=== PATIENT | male | born 1980 | race Caucasian/White ===

== ENCOUNTER → 2024-06-19 | Outpatient (CLI) | payer BC, SELFPAY ==
[2024-06-25 06:23] LABS: Testosterone,Total* 335 ng/dL (250-1100)
== END | disposition home or self-care (01) ==
LOC: COPL 08:48
PROVIDERS: PCP Nurse Practitioner Family; Referring Provider Nurse Practitioner Family; Visit Provider Nurse Practitioner Family
DX: E29.1 Testicular hypofunction (principal)
CPT/HCPCS: 36415; 84403

== ENCOUNTER 2024-11-27 22:33 | Emergency (ER) | payer BC, SELFPAY ==
[2024-11-27 22:40] VITALS: BP 132/84; PULSE 92; RESP 19; TEMP 36.7; O2SAT 93; BMI 32.1
[2024-11-27 23:00] VITALS: RESP 20
[2024-11-27 23:12] VITALS: BP 128/82; PULSE 87; RESP 19; TEMP 36.7; O2SAT 96
--- NOTE | 2024-11-28 00:08 | XR_ITS ---
Examination: AP chest single view TECHNIQUE: Portable sitting AP chest single view Date and time on November 28, 2024 0055 hours INDICATIONS: Chest pain today FINDINGS: Normal heart size. Lungs are clear. Osseous structures are intact IMPRESSION: No active disease
--- NOTE | 2024-11-28 00:21 | PD.EDCHEST ---
ED Chest Pain RME/HPI General Chief Complaint: Chest Pain Stated Complaint: CHEST PAIN Time Seen by Provider: 11/27/24 23:04 Arrival date/time: 11/27/24 22:33 Limitations: no limitations RME / HPI RME / HPI narrative: Dr. Marrero's Main ED Evaluation: 44yo male with a history of HTN BIBA from work presents to the ED for a chief complaint of chest pain. Patient states he started feeling lightheaded and had chest tightness that radiated up to his neck at 2030. He checked his blood pressure and was noted to be 180/130, so he was sent over for evaluation. Patient denies any N/V/D, abdominal pain or any other associated symptoms. EMS administered nitroglycerin sublingual, nitropaste, and 2 aspirin en route. Patient denies any familial history of MD. Denies any tobacco use. NKA. PCP: Lindsay Related Data Home Medications ?Medication ?Instructions ?Recorded ?Confirmed hydrochlorothiazide 25 mg tablet 25 mg PO QDAY 07/31/18 07/31/18 Allergies Allergy/AdvReac Type Severity Reaction Status Date / Time No Known Allergies Allergy Verified 07/31/18 11:42 Review of Systems Review of Systems Systems Reviewed: All systems reviewed, normal except as documented Past Medical History Past Medical History CARDIAC: Positive Hypertension; Negative Congestive Heart Failure RESPIRATORY: Negative Chronic Obstructive Pulmonary Disease (COPD) GENITOURINARY: Negative Renal Disease ENT: Positive Ear Infection ENDOCRINE: Negative Diabetes Mellitus Type 1 or Diabetes Mellitus Type 2 OTHER HISTORY: Negative Autoimmune Disease Family History FAMILY HISTORY: Negative Family Psychiatric Problems, Family Respiratory Disorders, Family Cardiac Disorders, Family Gastrointestinal Problems, Family Genitourinary Problems, Family Endocrine Disorders, Family Reproductive Disorders, Family Musculoskeletal Disorders, Family Cancer, Family Surgery or Family Anesthesia Reaction Social History SMOKING STATUS: Never smoker ED Exam General Limitations: Present no limitations General appearance: Present alert and in no apparent distress Head Head exam: Present atraumatic Eye Eye exam: Present normal appearance, PERRL and EOMI ENT ENT exam: Present normal exam, normal oropharynx and mucous membranes moist Neck Neck exam: Present normal inspection, full ROM and trachea midline Chest Chest inspection: Present normal inspection and symmetric chest wall rise Respiratory Respiratory exam: Present normal lung sounds bilaterally Cardiovascular Cardiovascular exam: Present regular rate, normal rhythm and normal heart sounds Abdominal Exam Abdominal exam: Present soft and normal bowel sounds Extremities Exam Extremities exam: Present normal inspection and full ROM Back Exam Back exam: Present normal inspection and full ROM Neurological Exam Neurological exam: Present alert, oriented X3 and CN II-XII intact Psychiatric Psychiatric exam: Present normal affect and normal mood Skin Skin exam: Present warm, dry, intact and normal color Course Course Course Narrative: CXR is ordered for determining the etiology of chest pain. 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 11/28/24 00:08 Active Continuous Pulse Oximetry ONCE Care 11/28/24 00:08 Active EKG (ED ONLY) *Do not use* NOW Care 11/28/24 00:08 Completed Insert IV STAT Care 11/28/24 00:08 Active EKG (ED Only) Stat Exams 11/28/24 00:08 Ordered XR chest 1V portable Stat Exams 11/28/24 00:08 Taken B-Type Natriuretic Peptide Stat Lab 11/28/24 00:00 Completed CBC Stat Lab 11/28/24 00:00 Completed Comprehensive Metabolic Panel Stat Lab 11/28/24 00:00 Completed Partial Thromboplastin Time Stat Lab 11/28/24 00:00 Completed Prothrombin Time with INR Stat Lab 11/28/24 00:00 Completed Troponin I Stat Lab 11/28/24 00:00 Completed Troponin I Stat Lab 11/28/24 02:07 Completed Sodium Chloride 0.9% 1000 ml [Ns] 1,000 ml Med 11/28/24 00:08 Discontinued IV 999 mls/hr Oxygen Delivery NOW RT 11/28/24 00:08 Active Vital Signs Vital signs: Vital Signs Temperature 98.1 F 11/27/24 22:40 Pulse Rate 92 11/27/24 22:40 Respiratory Rate 19 11/27/24 22:40 Blood Pressure 132/84 H 11/27/24 22:40 Pulse Oximetry (%) 93 L 11/27/24 22:40 Oxygen Delivery Method Room Air 11/27/24 22:40 Chest Pain MDM Narrative MDM Narrative:: Scribe Attestation: 11/28/24 Lesa Lyle am scribing for and in the presence of Dr. Marrero. HEART score is 1, indicating the patient is at a low risk for a cardiac event. 0015: Blood pressure is now 119/73 with a HR of 67. Patient data External records reviewed:: [facility] previous records (Per chart review, patient has no relevant previous ED visits.) Clinical information provided by:: patient Social determinants that could affect healthcare access:: none Patient has the following chronic illnesses:: HTN How is presenting disease/condition affected by chronic disease/condition?: caused by Evaluation data The following diagnostics were reviewed and interpreted by me:: lab results, radiology exam(s) and EKG tracing(s) Lab and/or radiology exams considered but not ordered:: none Interpretation Summary: CBC is normal, PT and INR are normal, PTT is normal, Potassium 3.0, Initial and Repeat Troponins are normal, BNP is normal, according to my interpretation. CXR is negative for any infiltrates, cardiomegaly, or pleural effusions, according to my interpretation. EKG done at 2306, NSR, rate of 83, low voltage, nonspecific ST-T wave change in lead III, [place] interval: 173, QTc: 412, no STEMI, according to my interpretation. Medications / Prescriptions Medications or Prescriptions considered but not ordered:: none Medication administrations:: Medication Administration History Discontinued Medications Sodium Chloride (Ns) 1,000 mls @ 999 mls/hr IV .Q1H1M ONE Stop: 11/28/24 01:08 Last Infusion: 11/28/24 02:42 Dose: Infused Documented By: Admin: 11/28/24 01:41 Dose: 999 mls/hr Documented By: PATTI see above Consultations Consultation(s) initiated? (list below): No Diagnosis Chest Pain Differential Diagnosis: stable angina, unstable angina pectoris and other (atypical chest pain, PE) Most likely diagnosis given after review of the tests above:: atypical chest pain Admission Indicated Admission indicated?: not indicated Admission Request Was there a request for admission?: No Disposition Plan Disposition Plan: Discharge Discharge Attestation Discharge Attestation: The patient and all family members were given an opportunity to ask questions and understood the discharge instructions. Discharge instructions specifically effects, indications for sooner follow up or return to the emergency department, and the expected course of current diagnosis. Patient condition: Stable Discharge Plan Plan Patient Disposition: HOME (Self Care) Patient condition on transfer: Stable Prescriptions/Referrals Prescriptions/Med Rec: No Action hydrochlorothiazide 25 mg Tablet 25 mg PO QDAY Referrals: Kymberly Montoya MD [Primary Care Provider] - In 1 week Problem List Clinical Impression: Atypical chest pain Patient/Caregiver Discharge Instructions Education Materials: Communicating About Pain, ED Chest Pain, Uncertain Cause Additional Instructions: Follow-up with your PCP in the next 2-3 days. Return to the ED for any worsening symptoms or as needed. Print Language: Congolese Stand Alone Forms: [facility] Award Info., Patient Portal Info Letter
[2024-11-28 00:25] LABS: Eosinophils # (Auto) 0.1 Thou/mm3 (0.0-0.5); Eosinophils % (Auto) 1 % (0-10); Immature Granulocytes % (Auto) 0 % (0-0); Immature Granulocytes Auto 0.03 Thou/mm3 (0.00-0.00); Nucleated Red Blood Cell % 0 /100 WBC (0)
[2024-11-28 00:44] LABS: Basophils # (Auto) 0.1 Thou/mm3 (0.0-0.2); Basophils % (Auto) 1 % (0-2.5); Hematocrit 45.5 % (41.0-53.0); Hemoglobin 16.8 g/dL (13.5-16.0); Lymphocytes # (Auto) 3.4 Thou/mm3 (1.0-4.8); Lymphocytes % (Auto) 36 % (10-50); Mean Corpuscular HGB Conc 36.9 g/dl (31.0-37.0); Mean Corpuscular Hemoglobin 31.5 pg (25.0-35.0); Mean Corpuscular Volume 85 fL (80-100); Monocytes # (Auto) 0.8 Thou/mm3 (0.0-0.8); Monocytes % (Auto) 9 % (0-12); Neutrophils % (Auto) 53 % (37-80); Platelet Count 347 Thou/mm3 (140-440); RDW Standard Deviation 36.1 fL (35.1-43.9); Red Blood Count 5.33 Miln/mm3 (4.50-5.90); White Blood Count 9.5 Thou/mm3 (3.8-10.6)
[2024-11-28 00:54] LABS: Partial Thromboplastin Time 28.7 Seconds (22.0-36.0); Prothrombin Time 11.4 Seconds (9.0-12.2)
[2024-11-28 00:56] LABS: B-Type Natriuretic Peptide < 20 pg/mL (0-100)
[2024-11-28 00:57] LABS: Alanine Aminotransferase 51 U/L (10-49); Albumin, Serum 4.6 gm/dL (3.5-5.0); Albumin/Globulin Ratio 1.8 (1.2-2.2); Alkaline Phosphatase 65 U/L (46-116); Anion Gap 13 (7-16); Aspartate Amino Transferase 28 U/L (0-34); BUN/Creatinine Ratio 10 Ratio (12-20); Bilirubin,Total 0.7 mg/dL (0.3-1.2); Blood Urea Nitrogen 11 mg/dL (9-23); Carbon Dioxide 25.7 mMol/L (20.0-31.0); Chloride 101 mMol/L (98-107); Creatinine (Component) 1.1 mg/dL (0.6-1.3); Estimated Creatinine Clearance 117.2 mL/min (>60); Globulin 2.5 gm/dL (2.3-3.5); Glucose 93 mg/dL (74-106); Osmolality,Calculated 278 (275-295); Sodium 140 mMol/L (136-145); Total Protein 7.1 gm/dL (5.7-8.2); Troponin I < 0.002 ng/mL (0.0-0.045); eGFR > 60 See Note
[2024-11-28] MEDS: SODIUM CHLORIDE 0.9% 1000 ML 1,000 ML 999 ML IV (01:41)
[2024-11-28 02:49] LABS: Troponin I < 0.002 ng/mL (0.0-0.045)
[2024-11-28 03:54] VITALS: BP 121/76; PULSE 82; RESP 18; TEMP 36.7; O2SAT 98
== END 2024-11-28 04:19 | disposition home or self-care (01) ==
PROVIDERS: Emergency Provider Emergency Medicine; PCP Family Medicine
DX: R07.89 Other chest pain (principal); I49.8 Other specified cardiac arrhythmias; I10 Essential (primary) hypertension
CPT/HCPCS: 36415; 71045; 80053; 83880; 84484; 85025; 85610; 85730; 93005; 96360; 99284; J7030

== ENCOUNTER → 2024-11-28 | Outpatient (CLI) | payer BC, SELFPAY ==
--- NOTE | 2024-11-28 12:16 | XR_ITS ---
Examination: Ultrasound soft tissue neck TECHNIQUE: Grayscale sonographic images soft tissue neck Date and time: November 28, 2024 1235 hours INDICATIONS: Palpable lump posterior right neck 6 years. FINDINGS: Enlarged lymph node at the area concern, 16 x 8 x 9 mm IMPRESSION: Enlarged lymph node posterior right neck as above Consider CT soft tissue neck post intravenous contrast follow-up
--- NOTE | 2024-11-28 12:16 | XR_ITS ---
Examination: Carotid arterial duplex scan, ultrasound. Date and time of exam: November 28, 2024 1226 hours INDICATIONS: Onset dizziness episodes today Technique: Multiple sonographic images have been obtained of the carotid arteries and vertebral arteries, B-mode/grayscale imaging and Doppler spectral analysis and color flow Peak systolic and diastolic velocities have been recorded. Systolic diastolic ratios have been calculated. Findings: Right peak systolic velocities: Distal internal carotid artery peak systolic velocity is 0.7 M/sec Proximal internal carotid artery peak systolic velocity is 0.7 M/sec Carotid bifurcation peak systolic velocity is 1.0 M/sec External carotid artery peak systolic velocity is 1.0 M/sec Vertebral artery flow is antegrade. Left peak systolic velocities: Distal internal carotid artery peak systolic velocity is 0.9 M/sec Proximal internal carotid artery peak systolic velocity is 0.8 M/sec Carotid bifurcation peak systolic velocity is 1.0 M/sec External carotid artery peak systolic velocity is 1.2 M/sec Vertebral artery flow is antegrade Doppler waveform analysis demonstrates no spectral broadening Impression: Right internal carotid artery demonstrates 0-10% stenosis. Left internal carotid artery demonstrates 0-10% stenosis.
== END | disposition home or self-care (01) ==
LOC: CDIM 12:08
PROVIDERS: PCP Registered Nurse; Referring Provider Registered Nurse; Visit Provider Registered Nurse
DX: R42 Dizziness and giddiness (principal); R59.0 Localized enlarged lymph nodes
CPT/HCPCS: 76536; 93880

== ENCOUNTER → 2024-12-03 | Outpatient (CLI) | payer BC, SELFPAY ==
[2024-12-03 08:03] LABS: Collection Type, Urine Clean Catch; Squamous Epithelial Cell,Urine 0 /hpf (0-5)
[2024-12-03 08:30] LABS: Basophils # (Auto) 0.1 Thou/mm3 (0.0-0.2); Basophils % (Auto) 1 % (0-2.5); Eosinophils # (Auto) 0.1 Thou/mm3 (0.0-0.5); Eosinophils % (Auto) 2 % (0-10); Hematocrit 48.5 % (41.0-53.0); Hemoglobin 17.6 g/dL (13.5-16.0); Immature Granulocytes % (Auto) 0 % (0-0); Immature Granulocytes Auto 0.03 Thou/mm3 (0.00-0.00); Lymphocytes # (Auto) 2.6 Thou/mm3 (1.0-4.8); Lymphocytes % (Auto) 33 % (10-50); Mean Corpuscular HGB Conc 36.3 g/dl (31.0-37.0); Mean Corpuscular Hemoglobin 30.8 pg (25.0-35.0); Mean Corpuscular Volume 85 fL (80-100); Monocytes # (Auto) 0.8 Thou/mm3 (0.0-0.8); Monocytes % (Auto) 10 % (0-12); Neutrophils # (Auto) 4.3 Thou/mm3 (1.8-7.7); Neutrophils % (Auto) 54 % (37-80); Nucleated Red Blood Cell % 0 /100 WBC (0); Platelet Count 317 Thou/mm3 (140-440); Red Blood Count 5.71 Miln/mm3 (4.50-5.90); White Blood Count 7.9 Thou/mm3 (3.8-10.6)
[2024-12-03 08:35] LABS: Bilirubin,Urine Negative (Negative); Blood,Urine Negative (Negative); Clarity,Urine Clear (Clear/Hazy); Color,Urine Yellow (Lt Yel-Yel); Culture Indicated,Urine Not Indicated; Glucose, Urine Negative (Negative); Ketones,Urine Negative (Negative); Leukocyte Esterase,Urine Negative (Negative); Nitrite,Urine Negative (Negative); Protein,Urine Negative (Neg - Trace); RBC,Urine 1 /hpf (0-3); Specific Gravity,Urine 1.019 (1.001-1.035); Urobilinogen,Urine Negative mg/dL (0.0-1.0); WBC,Urine 1 /hpf (0-5)
[2024-12-03 08:54] LABS: Prostate Specific Antigen 0.74 ng/mL (0-4.00)
[2024-12-03 08:56] LABS: Alanine Aminotransferase 51 U/L (10-49); Albumin/Globulin Ratio 2.2 (1.2-2.2); Alkaline Phosphatase 69 U/L (46-116); Anion Gap 9 (7-16); Aspartate Amino Transferase 24 U/L (0-34); BUN/Creatinine Ratio 10 Ratio (12-20); Bilirubin,Total 1.2 mg/dL (0.3-1.2); Blood Urea Nitrogen 11 mg/dL (9-23); Calcium 9.5 mg/dL (8.3-10.6); Calcium (Corrected) 9.5 mg/dL (8.5-10.1); Carbon Dioxide 29.6 mMol/L (20.0-31.0); Chloride 98 mMol/L (98-107); Cholesterol 167 mg/dL (132-200); Creatinine (Component) 1.1 mg/dL (0.6-1.3); Globulin 2.3 gm/dL (2.3-3.5); Glucose 125 mg/dL (74-106); HDL Cholesterol 56 mg/dL (40-60); LDL Cholesterol,Calculated 85 mg/dL (0-130); Osmolality,Calculated 274 (275-295); Potassium 4.5 mMol/L (3.4-5.1); Sodium 137 mMol/L (136-145); Total Protein 7.3 gm/dL (5.7-8.2); Triglycerides 128 mg/dL (30-150); Uric Acid 6.8 mg/dL (3.7-9.2); eGFR > 60 See Note
[2024-12-12 06:58] LABS: Testosterone,Total* 295 ng/dL (250-1100)
== END | disposition home or self-care (01) ==
LOC: COPL 07:15
PROVIDERS: PCP Family Medicine; Referring Provider Registered Nurse; Visit Provider Nurse Practitioner Family
DX: Z00.00 Encounter for general adult medical examination without abnormal findings (principal); M10.00 Idiopathic gout, unspecified site; I10 Essential (primary) hypertension; E29.1 Testicular hypofunction
CPT/HCPCS: 36415; 80053; 80061; 81001; 84153; 84403; 84443; 84550; 85025

== ENCOUNTER → 2025-01-07 | Outpatient (CLI) | payer BC, SELFPAY ==
--- NOTE | 2025-01-07 08:30 | XR_ITS ---
Examination: CT soft tissue neck, without intravenous contrast. 2-D coronal reconstructions. 2-D sagittal reconstructions. Date and time of exam :January 07, 2025 0840 hours INDICATIONS: Swelling palpable lump in the right neck 5 years. CTDI: vol (mGy):19.2 DLP: (mGycm):667 Technique: 1.25 mm axial sections of the neck of the obtained. Coronal and sagittal reconstructions have been obtained. Low dose protocols were performed. One or more of the following dose reduction techniques were used; automated exposure control, adjustment of the mA and/or KV according to patient size, use of iterative reconstruction technique. Findings: Significant left maxillary sinus disease Symmetrical oropharynx nasopharynx Enlarged lymph node 12 mm in the subcutaneous fatty tissue posterior neck Symmetrical parotid glands Multiple carotid triangle lymph nodes, the largest on the left side 11 mm on the right side 10 mm Posterior cervical lymph nodes, the largest 12 mm The larynx appears normal Thyroid lobes are not enlarged The epiglottis is not thickened Advanced disc narrowing C5-C6 IMPRESSION: Cervical lymphadenopathy as above, consider 3 month follow-up CT soft tissue neck post contrast
== END | disposition home or self-care (01) ==
LOC: CCTX 08:08
PROVIDERS: PCP Family Medicine; Referring Provider Registered Nurse; Visit Provider Registered Nurse
DX: R59.0 Localized enlarged lymph nodes (principal)
CPT/HCPCS: 70490